=== PATIENT | male | born 1960 | race Caucasian/White ===

== ENCOUNTER 2019-11-16 10:18 | Emergency (ER) | payer OTHER ==
[~2019-11-16] VITALS: Ht 167.6 cm; Wt 102.3 kg
--- NOTE | 2019-11-16 10:46 | NUR ---
FIRST CONTACT WITH PT. PT STATES "HE ATE SOME CHEDDAR CHEESE CRACKERS THEN HE FELT SICK. HE WOKE ME UP AT 6:50 THIS MORNING. AND HE'S HAVING CHEST PAIN STARTED 20 MIN AGO AND HE FELT LIKE HE WAS GOING TO PASS OUT. I FEEL LIKE I'M HAVING A PANIC ATTACK". DENIES HX PR. PT'S AOX4. RESPS EVEN AND UNLABORED. ALL MONITORS IN PLACE. CALL LIGHT WITHIN REACH. 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 AT BEDSIDE.
--- NOTE | 2019-11-16 11:22 | NUR ---
EDMD AT BEDSIDE TO EVALUATE AT THIS TIME.
[2019-11-16] MEDS ORDERED: MAALOX/HYOSCYAMINE/LIDOCAINE 45 ML BTL ONE (11:49)
--- NOTE | 2019-11-16 11:54 | NUR ---
US AT BEDSIDE AT THIS TIME.
--- NOTE | 2019-11-16 11:54 | NUR ---
PT MEDICATED PER EMAR. PT TOLERATED WELL.
[2019-11-16] MEDS ORDERED: MAALOX/HYOSCYAMINE/LIDOCAINE 45 ML BTL PO ONE (12:00)
[2019-11-16 12:02] LABS: BASOPHILS # (AUTO) 0.02 x10^3/uL (0-0.1); BASOPHILS % (AUTO) 0 % (0-1); EOSINOPHILS # (AUTO) 0.06 x10^3/uL (0-0.4); EOSINOPHILS % (AUTO) 1 % (1-7); LYMPHOCYTES # (AUTO) 1.03 x10^3/uL (1-3.4); LYMPHOCYTES % (AUTO) 10 % (22-44); MD NO; MEAN CORPUSCULAR HEMOGLOBIN 31.7 pg (27.5-34.5); MEAN CORPUSCULAR HGB CONC 33.9 g/dL (33.2-36.2); MEAN CORPUSCULAR VOLUME 93.3 fL (81-97); MEAN PLATELET VOLUME 8.6 fL (7.4-10.4); MONOCYTES # (AUTO) 0.19 x10^3/uL (0.2-0.8); MONOCYTES % (AUTO) 2 % (2-9); NEUTROPHILS # (AUTO) 9.17 x10^3/uL (1.8-6.8); NEUTROPHILS % (AUTO) 88 % (42-75); PLATELET COUNT 241 x10^3/uL (130-400); RED BLOOD COUNT 5.13 x10^6/uL (4.38-5.82); RED CELL DISTRIBUTION WIDTH 13.6 % (9.4-14.8)
[2019-11-16 12:16] LABS: ALBUMIN 3.4 g/dL (3.4-5.0); ANION GAP 6 mmol/L (5-15); CALCIUM 9.9 mg/dL (8.5-10.1); CHLORIDE 105 mmol/L (98-107)
[2019-11-16 12:21] LABS: ALANINE AMINOTRANSFERASE 23 U/L (12-78); ALKALINE PHOSPHATASE 106 U/L (45-117); BILIRUBIN,TOTAL 0.4 mg/dL (0.2-1.0); CREATININE 1.22 mg/dL (0.7-1.3); TOTAL PROTEIN 7.4 g/dL (6.4-8.2); TROPONIN I < 0.015 ng/mL (0.000-0.045)
[2019-11-16] MEDS ORDERED: HYDROmorphone 1 MG/ML, 1ML INJ ONE (12:40)
--- NOTE | 2019-11-16 12:47 | NUR ---
BREAK RN: PT MEDICATED PER EMAR. VS STABLE. PT RESTING ON GURNEY W/ CALL LIGHT IN REACH. DENIES FURTHER NEEDS AT THIS TIME.
[2019-11-16] MEDS ORDERED: HYDROmorphone 1 MG/ML, 1ML INJ IM PRN (13:00)
[2019-11-16 13:38] VITALS: BP 128/74
--- NOTE | 2019-11-16 13:39 | NUR ---
Patient given discharge instructions and they have confirmed that they understand the instructions. Patient ambulatory with steady gait.
== END 2019-11-16 13:40 | disposition home or self-care (01) ==
LOC: ED 12:57
DX: K80.20 Calculus of gallbladder without cholecystitis without obstruction (principal); E78.5 Hyperlipidemia, unspecified; E78.00 Pure hypercholesterolemia, unspecified; F17.200 Nicotine dependence, unspecified, uncomplicated
CPT/HCPCS: 36415; 71045; 76700; 80053; 83690; 84484; 85025; 93005; 96372; 99285; J1170; 96374

== ENCOUNTER 2019-11-18 01:47 | Emergency (ER) | payer OTHER ==
[~2019-11-18] VITALS: Ht 167.6 cm; Wt 105.8 kg
--- NOTE | 2019-11-18 02:05 | NUR ---
PT REPORTS CONTINUED ABDOMINAL PAIN FROM X2 DAYS AGO, PT WAS SEEN IN ED 2 DAYS AGO DX WITH CHOLELETHIASIS. PT REPORTS SAME PAIN WITH NO RELEIF SINCE BEING EVALUATED. PT CONNECTED TO ALL MONITORING, CALL LIGHT WITHIN REACH, ALL SAFETY MEASURES IN PLACE.
[2019-11-18] MEDS ORDERED: ONDANSETRON 2MG/ML, 2ML ONE (02:20)
[2019-11-18] MEDS ORDERED: KETOROLAC 30 MG/1 ML ONE (02:20)
[2019-11-18] MEDS ORDERED: SODIUM CHLORIDE FLUSH 10ML SYR IVF ONE (02:30)
[2019-11-18] MEDS ORDERED: KETOROLAC 30 MG/1 ML IVPush ONE (02:30)
[2019-11-18] MEDS ORDERED: ONDANSETRON 2MG/ML, 2ML IVPush ONE (02:30)
--- NOTE | 2019-11-18 02:30 | NUR ---
LABS DRAWN, PT TO IMAGING AT THIS TIME.
[2019-11-18 02:31] LABS: BASOPHILS # (AUTO) 0.02 x10^3/uL (0-0.1); BASOPHILS % (AUTO) 0 % (0-1); EOSINOPHILS # (AUTO) 0.13 x10^3/uL (0-0.4); EOSINOPHILS % (AUTO) 1 % (1-7); LYMPHOCYTES % (AUTO) 11 % (22-44); MD NO; MEAN CORPUSCULAR HEMOGLOBIN 31.4 pg (27.5-34.5); MEAN CORPUSCULAR HGB CONC 33.8 g/dL (33.2-36.2); MEAN CORPUSCULAR VOLUME 92.9 fL (81-97); MEAN PLATELET VOLUME 9.1 fL (7.4-10.4); MONOCYTES # (AUTO) 0.78 x10^3/uL (0.2-0.8); MONOCYTES % (AUTO) 6 % (2-9); NEUTROPHILS # (AUTO) 11.62 x10^3/uL (1.8-6.8); NEUTROPHILS % (AUTO) 83 % (42-75); PLATELET COUNT 231 x10^3/uL (130-400); RED CELL DISTRIBUTION WIDTH 13.5 % (9.4-14.8)
[2019-11-18] MEDS: SODIUM CHLORIDE 0.9% 1,000ML IVBOLUS ONE ×2 (02:43→03:03)
[2019-11-18 02:55] LABS: ALANINE AMINOTRANSFERASE 23 U/L (12-78); ALBUMIN 3.3 g/dL (3.4-5.0); ANION GAP 10 mmol/L (5-15); CALCIUM 8.5 mg/dL (8.5-10.1); CHLORIDE 104 mmol/L (98-107); CREATININE 1.08 mg/dL (0.7-1.3)
[2019-11-18 02:58] LABS: ALKALINE PHOSPHATASE 114 U/L (45-117); BILIRUBIN,TOTAL 0.6 mg/dL (0.2-1.0); TOTAL PROTEIN 7.7 g/dL (6.4-8.2)
[2019-11-18 03:03] VITALS: BP 161/77
[2019-11-18] MEDS ORDERED: PIPERACILLIN/TAZO/PMX 3.375GM 50 ML ONE (03:45)
[2019-11-18] MEDS ORDERED: SODIUM CHLORIDE 0.9% 1,000 ML IV ONE (03:47)
[2019-11-18 03:53] LABS: TROPONIN I < 0.015 ng/mL (0.000-0.045)
[2019-11-18] MEDS ORDERED: PIPERACILLIN/TAZO/PMX 3.375GM 50 ML IV ONE (04:00)
[2019-11-18] MEDS ORDERED: SODIUM CHLORIDE FLUSH 10ML SYR IVF PRN (04:00)
[2019-11-18] MEDS ORDERED: MORPHINE SULFATE 4 MG/ML, 1ML IVPush PRN (04:00)
[2019-11-18] MEDS ORDERED: ONDANSETRON 2MG/ML, 2ML IVPush PRN (04:00)
--- NOTE | 2019-11-18 05:25 | NUR ---
REPORT TO ROSANNE CALLES AT [facility].
== END 2019-11-18 05:34 | disposition home or self-care (01) ==
LOC: OR 04:10
DX: K80.00 Calculus of gallbladder with acute cholecystitis without obstruction (principal); R11.0 Nausea; F17.210 Nicotine dependence, cigarettes, uncomplicated
CPT/HCPCS: 36415; 71045; 76700; 80053; 83690; 84484; 85025; 93005; 96365; 96375; 99285; J1885; J2405; J2543; J7030